=== PATIENT | male | born 1990 | race Caucasian/White ===

== ENCOUNTER 2016-10-15 08:33 | Emergency (ER) | payer MEDICAID, OTHER ==
[~2016-10-15] VITALS: Ht 170.2 cm; Wt 79.4 kg
[2016-10-15 09:02] VITALS: BP 151/102
--- NOTE | 2016-10-15 09:23 | NUR ---
PT AMBULATED TO BED 8 AT THIS TIME.
--- NOTE | 2016-10-15 09:35 | NUR ---
LLQ ABD PAIN X5 DAYS; DENIES N/V/D; SKIN IS PINK/WARM/DRY; AAOX4 WITH EVEN AND STEADY GAIT; LUNGS CLEAR BL; HR EVEN AND REGULAR; PT DENIES ANY FEVER, CP, SOB, OR COUGH AT THIS TIME; PATIENT STATES PAIN OF 5/10 AT THIS TIME; VSS; PATIENT POSITIONED FOR COMFORT; HOB ELEVATED; BEDRAILS UP X2; BED DOWN. ER MD MADE AWARE OF PT STATUS.
[2016-10-15 10:35] VITALS: BP 135/76
== END 2016-10-15 10:35 | disposition home or self-care (01) ==
LOC: MED 08:33
DX: S39.011A Strain of muscle, fascia and tendon of abdomen, initial encounter (principal); R03.0 Elevated blood-pressure reading, without diagnosis of hypertension; X50.3XXA Overexertion from repetitive movements, initial encounter; Y93.B2 Activity, push-ups, pull-ups, sit-ups; Y92.89 Other specified places as the place of occurrence of the external cause; Y99.8 Other external cause status

== ENCOUNTER 2017-05-24 10:03 | Emergency (ER) | payer OTHER ==
[~2017-05-24] VITALS: Ht 170.2 cm; Wt 69.9 kg
[2017-05-24 10:05] VITALS: BP 126/68
--- NOTE | 2017-05-24 10:08 | NUR ---
TO ER BED 4
--- NOTE | 2017-05-24 10:10 | NUR ---
Patient being evaluated by physician at bedside.
--- NOTE | 2017-05-24 10:25 | NUR ---
26/M BIB SELF C/O 09/25 LEFT SIDED CHEST PAIN X2DAYS. HX GASTRITIS AND HIATAL HERNIA. PT DENIES ANY OTHER SYMPTOMS. PT AAOX4. LUNG SOUNDS CLR. VSS. ER MADE AWARE. 20G IV TO LAC. PT HITESH WELL. BLOOD DRAWN AND SENT. EKG DONE AT BEDSIDE.
[2017-05-24 10:40] LABS: BASOPHILS # (AUTO) 0.1 K/uL (0.00-0.22); BASOPHILS % (AUTO) 2.6 % (0.0-2.0); EOSINOPHILS # (AUTO) 0.1 K/uL (0-0.4); EOSINOPHILS % (AUTO) 1.8 % (0.0-4.0); HEMATOCRIT 44.5 % (36-52); HEMOGLOBIN 14.7 g/dL (12.0-18.0); LYMPHOCYTES # (AUTO) 0.8 K/uL (2.0-11.5); LYMPHOCYTES % (AUTO) 15.4 % (20.5-51.1); MEAN CORPUSCULAR HEMOGLOBIN 29 pg (27-31); MEAN CORPUSCULAR HGB CONC 33 g/dL (33-37); MEAN CORPUSCULAR VOLUME 89 fL (80-94); MONOCYTES # (AUTO) 0.4 K/uL (0.8-1.0); MONOCYTES % (AUTO) 7.5 % (1.7-9.3); NEUTROPHILS % (AUTO) 72.7 % (42.2-75.2); PLATELET COUNT (AUTO) 188 K/uL (140-450); RED BLOOD CELL COUNT(AUTO) 5.02 MIL/uL (4.20-6.10); RED CELL DISTRIBUTION WIDTH 12.2 % (11.6-13.7); WHITE BLOOD COUNT (AUTO) 5.4 K/uL (4.8-10.8)
--- NOTE | 2017-05-24 10:40 | NUR ---
X-Ray at bedside.
[2017-05-24 10:52] LABS: ANION GAP 8.5 (8-16); CARBON DIOXIDE 30.5 mmol/L (21-32); CREATININE 0.9 mg/dL (0.7-1.3)
[2017-05-24 10:58] LABS: ALBUMIN 4.4 g/dL (3.4-5.0); TOTAL BILIRUBIN 0.9 mg/dL (0.0-1.0)
[2017-05-24 11:48] VITALS: BP 139/56
--- NOTE | 2017-05-24 11:49 | NUR ---
ORANGE SURVEY GIVEN TO PATIENT.
[2017-05-25] MEDS ORDERED: ASPIRIN 325 MG TABEC PO SCH (09:00)
== END 2017-05-24 11:48 | disposition home or self-care (01) ==
LOC: MED 10:03
DX: R07.89 Other chest pain (principal); R03.0 Elevated blood-pressure reading, without diagnosis of hypertension
CPT/HCPCS: 36415; 71010; 80053; 83880; 84484; 85025; 85610; 85730; 93005; 99285; Q0092